=== PATIENT | female | born 1945 ===

== ENCOUNTER 2019-05-03 12:15 | Inpatient (IN) | payer OTHER ==
[~2019-05-03] VITALS: Ht 147.3 cm; Wt 59.4 kg
[2019-05-06] MEDS ORDERED: INDAPAMIDE1.25 MG PO (13:14)
[2019-05-06] MEDS ORDERED: MILLIPRED5 MG PO (13:14)
[2019-05-06] MEDS ORDERED: PNEU16DI2 ×2 (13:14→13:16)
[2019-05-06] MEDS ORDERED: NORVASC10 MG PO (13:16)
[2019-05-06] MEDS ORDERED: LOSARTAN POTAS100 MG PO (13:16)
[2019-05-06] MEDS ORDERED: ZANTAC300 MG PO (13:17)
[2019-05-06] MEDS ORDERED: OMEPRAZOLE20 MG PO (13:17)
[2019-05-06] MEDS ORDERED: PLAQUENIL PO (13:23)
[2019-05-06] MEDS ORDERED: SINTROID PO (13:25)
[2019-05-06] MEDS ORDERED: [UNRECOGNIZED DRUG - OTHER] OP (13:28)
[2019-05-06] MEDS ORDERED: FLEXERIL PO (13:29)
[2019-05-10] MEDS ORDERED: LEVOTHYROXINE25 MCG PO (08:02)
[2019-05-10] MEDS ORDERED: HYDROXYCHLOROQ200 MG PO (08:05)
[2019-05-10] MEDS ORDERED: CYCLOBENZAPRINE10 MG (08:07)
[2019-05-10] MEDS ORDERED: FLUOROMETHOLONE5 ML (08:09)
[2019-05-13] MEDS ORDERED: ULTRACET PO (13:48)
== END 2019-05-13 14:17 | disposition home or self-care (01) | DRG 349 ==
LOC: O/R 12:15 → SURH 05-10 06:19 → O/R 05-10 06:19 → SURH 05-10 07:00
PROVIDERS: ADMIT Surgery
PROC: 0DUR0KZ Supplement Anal Sphincter with Nonautologous Tissue Substitute, Open Approach (ICD-10-PCS; 2019-05-10)
PROC: 4A12X4Z Monitoring of Cardiac Electrical Activity, External Approach (ICD-10-PCS; 2019-05-10)
PROC: 4A033R1 Measurement of Arterial Saturation, Peripheral, Percutaneous Approach (ICD-10-PCS; 2019-05-10)
PROC: 0DBP7ZZ Excision of Rectum, Via Natural or Artificial Opening (ICD-10-PCS; principal; 2019-05-10 07:00)
DX: K62.1 Rectal polyp (principal); K62.3 Rectal prolapse; R15.9 Full incontinence of feces; K64.8 Other hemorrhoids